=== PATIENT | female | born 1975 | race Caucasian/White ===

== ENCOUNTER 2017-04-09 21:12 | Emergency (ER) | payer MEDICAID, SELFPAY ==
[2017-04-09 21:13] VITALS: BP 127/67; PULSE 83; RESP 16; TEMP 37.1; O2SAT 98; BMI 18.6
--- NOTE | 2017-04-09 21:50 | RAD_ITS ---
STUDY: X-RAY - UNILATERAL RIBS ( RIGHT ) WITH CHEST REASON FOR EXAM: Female, 41 years old. Fall, pain TECHNIQUE - RIBS: 4 view(s) of the ribs. TECHNIQUE - CHEST: Single frontal view of the chest. COMPARISON: None. FINDINGS - RIBS: Anterior right seventh and eighth rib fractures. FINDINGS - CHEST: The lungs are clear and expanded. There is no demonstrated pleural abnormality. Normal size heart. Normal mediastinum and shubham. Normal visualized pulmonary arteries. Normal visualized aortic arch and descending thoracic aorta. Normal visualized thoracic spine. Normal visualized ribs, clavicles, and shoulders. There is no demonstrated abnormality of the visualized soft tissue structures of the upper abdomen. RAD/Ribs Uni Min 3V w/PA Chest IMPRESSION: RIBS: Anterior right seventh and eighth rib fractures. CHEST: Normal x-ray examination of the chest. Electronically Signed: Timothy Garcia DO at 22:25 EST , Service support ,
--- NOTE | 2017-04-09 22:18 | ED.VISSUMM ---
- ER Visit Summary Date of Service: 04/09/17 Chief Complaint: Right rib cage pain History of Present Illness: The patient is a 41 F who slipped and fell about 3 weeks ago, into a railing against her armpit and injured her right chest wall at the same time, she has been to 2 different emergency department so far, the first 1 that shot x-rays and said they were normal, and gave her an incentive spirometer. The second 1 did not shoot x-rays. She is hurting worse now. 1 of the doctors told her to cough on purpose to keep from developing pneumonia. She is a smoker. She states the pain is getting worse, and later told me that she sneezed the other day, and continues to cough because she was told to do so. She denies any dyspnea, but the pain is worse when she breathes. She denies having any problems with the right upper extremity or numbness. Physical Examination: Tenderness throughout the right anterior lower and lateral rib cage. No crepitance. Equal breath sounds bilaterally, lungs are clear, trachea midline. Heart is regular without tachycardia. Abdomen is soft nontender nondistended. No signs of injury on her chest wall. Test Results: X-rays of the chest and right ribs clearly show to minimally displaced rib fractures, at least. No pneumothorax noted. Emergency Department Course and Treatment: Reassured patient that she does have rib fractures. Incentive spirometry advised, I do not recommend coughing on purpose. She was encouraged to curb or stop smoking as this may limit her coughing. Oars checked, she has monthly alprazolam prescriptions but rare narcotics. Will prescribe her a short course of [place]. Treatment Plan: As above, supportive care Disposition: Discharge home Impression: Acute closed right rib fractures, subsequent encounter This note was generated with [employer] dictation software. It may contain incorrect words, spelling, and punctuation that were not noted in review of the chart prior to signing ED Disposition - Plan for ED Patient: Disposition: Home or Assisted Living Chief Complaint: Fall Instructions: ED Fx Rib Prescriptions: Hydrocodone Bitart/Apap 5-325 [[place] 5/325] 1 tab PO Q4H PRN PRN 3 Days #12 tab PRN Reason: Pain Referrals: Scooter Coffman DO [STAFF PHYSICIAN] -
--- NOTE | 2017-04-09 22:28 | ED.DCSUM_ITS ---
- ER Visit Summary Date of Service: 04/09/17 Chief Complaint: Right rib cage pain History of Present Illness: The patient is a 41 F who slipped and fell about 3 weeks ago, into a railing against her armpit and injured her right chest wall at the same time, she has been to 2 different emergency department so far, the first 1 that shot x-rays and said they were normal, and gave her an incentive spirometer. The second 1 did not shoot x-rays. She is hurting worse now. 1 of the doctors told her to cough on purpose to keep from developing pneumonia. She is a smoker. She states the pain is getting worse, and later told me that she sneezed the other day, and continues to cough because she was told to do so. She denies any dyspnea, but the pain is worse when she breathes. She denies having any problems with the right upper extremity or numbness. Physical Examination: Tenderness throughout the right anterior lower and lateral rib cage. No crepitance. Equal breath sounds bilaterally, lungs are clear, trachea midline. Heart is regular without tachycardia. Abdomen is soft nontender nondistended. No signs of injury on her chest wall. Test Results: X-rays of the chest and right ribs clearly show to minimally displaced rib fractures, at least. No pneumothorax noted. Emergency Department Course and Treatment: Reassured patient that she does have rib fractures. Incentive spirometry advised, I do not recommend coughing on purpose. She was encouraged to curb or stop smoking as this may limit her coughing. Oars checked, she has monthly alprazolam prescriptions but rare narcotics. Will prescribe her a short course of [place]. Treatment Plan: As above, supportive care Disposition: Discharge home Impression: Acute closed right rib fractures, subsequent encounter This note was generated with [employer] dictation software. It may contain incorrect words, spelling, and punctuation that were not noted in review of the chart prior to signing ED Disposition - Plan for ED Patient: Disposition: Home or Assisted Living Chief Complaint: Fall Instructions: ED Fx Rib Prescriptions: Hydrocodone Bitart/Apap 5-325 [[place] 5/325] 1 tab PO Q4H PRN PRN 3 Days #12 tab PRN Reason: Pain Referrals: Scooter Coffman DO [STAFF PHYSICIAN] -
[2017-04-09] MEDS: HYDROcodone Bitartrate/Apap 5/325 Tablet PO (22:40)
[2017-04-09 22:41] VITALS: BP 96/76; PULSE 65; RESP 16; O2SAT 99
== END 2017-04-09 22:42 | disposition home or self-care (01) ==
PROVIDERS: Emergency Provider Emergency Medicine
DX: S22.41XD Multiple fractures of ribs, right side, subsequent encounter for fracture with routine healing (principal); F17.200 Nicotine dependence, unspecified, uncomplicated; W19.XXXD Unspecified fall, subsequent encounter
CPT/HCPCS: 71101; 99283